=== PATIENT | male | born 1975 | race Caucasian/White ===

== ENCOUNTER 2019-11-08 22:46 | Emergency (ER) | payer OTHER ==
[2019-11-08 22:52] VITALS: BP 117/62; PULSE 89; TEMP 98.2; BMI 26.5
--- NOTE | 2019-11-08 23:52 | PDOC ---
History of Present Illness - General Chief Complaint: Shortness of Breath Stated Complaint: SOB Time Seen by Provider: 11/08/19 23:45 - History of Present Illness Initial Comments: Pt is a 44yo M with PMH of asthma who presents for difficulty breathing. Pt went to [facility] earlier Saturday AM for the same symptoms and was given nebulizer treatments and solumedrol and discharged with azithromycin for acute bronchitis. Pt states that over the last 5 days, he has had intermittent shortness of breath. States that he occasionally experiences a feeling of chest congestion with a non-productive cough. Thinks that it may be worse with a/c and denies anything that makes symptoms improve. States that he has used his albuterol inhaler >20 times since symptoms started. States that he has used sinex nasal spray 4x today without improvement in symptoms. Associated symptoms: palpitations, wheezing, chest tightness. Denies f/c, fatigue, diaphoresis, chest pain, abdominal pain, n/v. PCP: Dave PMH: Asthma PSHx: none Meds: albuterol, budesonide-formoterol All: NKDA SocialHX: smokes 1PPD, denies etoh, illicit drug use Past History - Medical History Allergies/Adverse Reactions: Allergies Allergy/AdvReac Type Severity Reaction Status Date / Time No Known Allergies Allergy Verified 11/09/19 01:02 Asthma: Yes COPD: No - Psycho-Social/Smoking History Smoking History: Current every day smoker Number of Cigarettes Smoked Daily: 20 Information on smoking cessation initiated: No - Substance Abuse Hx (Audit-C & DAST Scrn) How often the patient has a drink containing alcohol: Never Score: In Men: 4 or > Positive; In Women: 3 or > Positive: 0 Screen Result (Pos requires Nsg. Audit-10AR): Negative In the last yr the pt used illegal drug/Rx for NonMed reason: No Score: Yes response is considered Positive: 0 Screen Result (Positive result requires Nsg. DAST-10): Negative Review of Systems - Review of Systems Able to Perform ROS?: Yes Comments:: Constitutional: Denies fevers, chills, fatigue, diaphoresis Respiratory: Reports SOB, Cough, Wheezing Cardiac: Reports Palpitations, Denies Chest Pain, Edema GI: Denies abdominal pain, n/v, constipation, diarrhea Neurological: Denies Headache, tingling, weakness, numbness MSK: denies myalgia, arthralgia *Physical Exam - Vital Signs Last Vital Signs Temp Pulse Resp BP Pulse Ox 98.2 F 89 19 117/62 98 11/08/19 22:48 11/08/19 22:48 11/08/19 22:48 11/08/19 22:48 11/08/19 22:48 Medical Decision Making - Medical Decision Making Mr. Sharpe is 44yo M with a PMH asthma and anxiety who presents with difficulty breathing. Vital Signs Temp Pulse Resp BP Pulse Ox 98.2 F 89 19 117/62 98 11/08/19 22:48 11/08/19 22:48 11/08/19 22:48 11/08/19 22:48 11/08/19 22:48 DDx: anxiety, asthma exacerbation, bronchitis Plan: physical exam, CXR, albuterol MDI Pt vitals have been within normal limits during his stay in ED. Lung exam was normal. Pt was seen at [facility] earlier today for similar symptoms and was given duonebs and discharged with azithromycin for his bronchitis. CXR was normal, without fluid/infiltrate, normal cardiac silhouette, no signs of pneumonia, and full lung expansion. Pt was given one dose of albuterol with improvement in symptoms. Disposition Discharge to home 11/09/19 01:48 Discharge - Discharge Information Problems reviewed: Yes Clinical Impression/Diagnosis: Shortness of breath Condition: Stable - Admission No - Follow up/Referral - Patient Discharge Instructions Patient Printed Discharge Instructions: DI for Asthma -- Adult Additional Instructions: You came into the ER shortness of breath. We did a physical exam, chest xray, and gave you one dose of albuterol Please make sure to follow up with your primary doctor. Come back to the ER immediately with any new or worsening concerns. Thank you for coming to the [facility] ER. We hope you feel better soon! - Post Discharge Activity
--- NOTE | 2019-11-09 00:12 | PDOC ---
Documentation entered by Emily Hernandez SCRIBE, acting as scribe for Jasmyn Morel MD. Jasmyn Morel MD: This documentation has been prepared by the loraibeDavid Ana, SCRIBE, under my direction and personally reviewed by me in its entirety. I confirm that the documentation accurately reflects all work, treatment, procedures, and medical decision making performed by me. Attending Attestation - Resident Resident Name: Dotty Galaviz - ED Attending Attestation I have performed the following: I have examined & evaluated the patient, The case was reviewed & discussed with the resident, I agree w/resident's findings & plan, Exceptions are as noted - HPI HPI: 11/08/19 23:52 Patient is a 44 year old male with a significant past medical history of asthma and was recently d/c from [facility] for this. He has his inhalers with him but states he is afraid that if he goes home without a nebulizer treatment he will have wheezing at home. 98% pulse ox on room air 11/09/19 00:11 11/09/19 00:12 - Physicial Exam PE: 11/09/19 00:14 wnwd 44 yo male presents requesting nebulizer treatments head ncat neck supple lungs cta b/l cvs [id number] abd nontender extremities no edema, no erythema neuro axox3,ambulatory - Medical Decision Making 11/09/19 00:25 this patient does not have any wheezing on exam,he is moving air b/l, good breath sounds pulse ox=98% pt does not require any respiratory treatments at this time cxr napd pt appears to be anxious imp: history of asthma, anxiety 11/09/19 01:50 Discharge - Discharge Information Problems reviewed: Yes Clinical Impression/Diagnosis: Shortness of breath Condition: Stable - Follow up/Referral - Patient Discharge Instructions Patient Printed Discharge Instructions: DI for Asthma -- Adult Additional Instructions: You came into the ER shortness of breath. We did a physical exam, chest xray, and gave you one dose of albuterol Please make sure to follow up with your primary doctor. Come back to the ER immediately with any new or worsening concerns. Thank you for coming to the [facility] ER. We hope you feel better soon! - Post Discharge Activity
[2019-11-09] MEDS ORDERED: ALBUTEROL SO4 HFA INHALER IH ONE ×2 (00:39→01:05)
== END 2019-11-09 02:10 | disposition home or self-care (01) ==
LOC: JER 22:46
DX: R06.02 Shortness of breath (principal)
CPT/HCPCS: 71046-TC-FY; 99284-25

== ENCOUNTER 2019-11-09 14:59 | Emergency (ER) | payer OTHER ==
[2019-11-09 15:23] VITALS: BP 103/58; PULSE 83; TEMP 98.8; BMI 26.5
--- NOTE | 2019-11-09 17:20 | PDOC ---
History of Present Illness - General Chief Complaint: Asthma Stated Complaint: SICK Time Seen by Provider: 11/09/19 16:00 History Source: Patient Exam Limitations: No Limitations - History of Present Illness Initial Comments: 11/09/19 17:18 HISTORY OF PRESENT ILLNESS: 44-year-old male past medical history of asthma presents emergency department for evaluation of continued shortness of breath at home despite using albuterol MDI. Patient was seen and evaluated at [facility] this weekend and was started on azithromycin for bronchitis. Patient reports increased shortness of breath and came to this emergency department for evaluation he was discharged home with Proventil inhaler. Patient is concerned that he still has some tightness despite using his medications. No recent travel or sick contacts. PAST MEDICAL HISTORY: Asthma-no intubations 1 annual visit for asthma related concerns SURGICAL HISTORY: Denies ALLERGIES: No known drug allergies REVIEW OF SYSTEMS General/Constitutional: Denies fever or chills. Denies weakness, weight change. HEENT: Denies change in vision. Denies ear pain or discharge. Denies sore throat. Cardiovascular: Denies chest pain or shortness of breath. Respiratory: See HPI Gastrointestinal: Denies nausea, vomiting, diarrhea or constipation. Denies rectal bleeding. Genitourinary: Denies dysuria, frequency, or change in urination. Musculoskeletal: Denies joint or muscle swelling or pain. Denies neck or back pain. Skin and breasts: Denies rash or easy bruising. Neurologic: Denies headache, vertigo, loss of consciousness, or loss of sensation. Psychiatric: Denies depression or anxiety. Endocrine: Denies increased thirst. Denies abnormal weight change. Hematologic/Lymphatic: Denies anemia, easy bleeding, or history of blood clots. Allergic/Immunologic: Denies hives or skin allergy. Denies latex allergy. PHYSICAL EXAM General Appearance: Well-appearing, appropriately dressed. No apparent distress, no intoxication. HEENT: EOMI, PERRLA, normal ENT inspection, normal voice, TMs normal, pharynx normal. No conjunctival pallor. No photophobia, scleral icterus. Neck: Supple. Trachea midline. No tenderness, rigidity, carotid bruit, stridor, lymphadenopathy, or thyromegaly. Respiratory/Chest: Lungs CTAB. No shortness of breath, chest tenderness, respiratory distress, accessory muscle use. No crackles, rales, rhonchi, stridor, dullness. End expiratory wheezes present. Cardiovascular: RRR. S1, S2. No JVD, murmur, bradycardia, tachycardia. Past History - Medical History Allergies/Adverse Reactions: Allergies Allergy/AdvReac Type Severity Reaction Status Date / Time No Known Allergies Allergy Verified 11/09/19 01:02 Asthma: Yes COPD: No - Psycho-Social/Smoking History Smoking History: Never smoked Number of Cigarettes Smoked Daily: 20 - Substance Abuse Hx (Audit-C & DAST Scrn) How often the patient has a drink containing alcohol: Never Score: In Men: 4 or > Positive; In Women: 3 or > Positive: 0 Screen Result (Pos requires Nsg. Audit-10AR): Negative In the last yr the pt used illegal drug/Rx for NonMed reason: No Score: Yes response is considered Positive: 0 Screen Result (Positive result requires Nsg. DAST-10): Negative *Physical Exam - Vital Signs Last Vital Signs Temp Pulse Resp BP Pulse Ox 98.8 F 83 15 103/58 L 98 11/09/19 15:19 11/09/19 15:19 11/09/19 15:19 11/09/19 15:19 11/09/19 17:16 Medical Decision Making - Medical Decision Making 11/09/19 17:19 A/P: 44-year-old male with asthma exacerbation Albuterol MDI with spacer Reassess 11/09/19 17:53 Repeat lung exam reveals clear lungs. Patient is ambulatory without difficulty and is able to maintain his SPO2 greater than 98% with ambulation. Discharge home to continue previously prescribed medications and patient to keep spacer provided here in the emergency department. I discussed the physical exam findings, ancillary test results and final diagnoses with the patient. I answered all of the patient's questions. The patient was satisfied with the care received and felt comfortable with the discharge plan and treatment plan. The patient will call their primary care physician within 24 hours to arrange follow-up and will return to the Emergency Department with any new, persistent or worsening symptoms. Portions of this note have been documented using voice recognition software. As a result, errors may occur in the bulldozer/loader/compactor/scraper process. Effort has been made to correct all grammatical and bulldozer/loader/compactor/scraper error, but some may have been missed which may produce sporadic inaccurate bulldozer/loader/compactor/scraper or nonsensical phrases. Discharge - Discharge Information Problems reviewed: Yes Clinical Impression/Diagnosis: Asthma exacerbation Qualifiers: Asthma severity: mild Asthma persistence: intermittent Qualified Code(s): J45.21 - Mild intermittent asthma with (acute) exacerbation Condition: Stable Disposition: HOME - Admission No - Follow up/Referral - Patient Discharge Instructions Additional Instructions: Rest, drink lots of fluids: Teas, water, soups Saltwater gargles. Consider humidifier in room at night Steamy showers/seem to face break up mucus Avoid contact with allergens, exposure to pollens, close windows on a windy day Lots of handwashing and good hygiene Continue antihistamines daily until pollen season is over; Zyrtec, Claritin, Noy during the daytime and Benadryl at nighttime as will make sleepy Tylenol or Motrin for fever and pain Followup with private physician in one to 2 days as needed Consider following up with an supervisor laundry/installation technician for skin testing and possible allergy shots Return to emergency department for worsened symptoms, fevers, dehydration - Post Discharge Activity
[2019-11-09] MEDS ORDERED: LORATADINE 10 MG TABLET PO ONE (17:54)
[2019-11-09] MEDS: ALBUTEROL SO4 2.5/IPRATROPIUM 0.5 INH SOL 3 ML VIAL.NEB. NEB SCH ×2 (18:30→18:31)
[2019-11-09] MEDS ORDERED: LORATADINE 10 MG TABLET ONE (18:34)
== END 2019-11-09 18:39 | disposition home or self-care (01) ==
LOC: JER 14:59
PROC: 3E0F7GC Introduction of Other Therapeutic Substance into Respiratory Tract, Via Natural or Artificial Opening (ICD-10-PCS; principal; 2019-11-09)
DX: J45.21 Mild intermittent asthma with (acute) exacerbation (principal)
CPT/HCPCS: 99284-25